=== PATIENT | female | born 1965 | race Caucasian/White ===

== ENCOUNTER → 2017-01-22 | Outpatient (CLI) | payer OTHER ==
[2014-08-06 13:52] VITALS: BP 102/67
--- NOTE | 2017-01-23 12:16 | NM ---
History: Hyperparathyroidism. Study: Nuclear medicine parathyroid scan. Comparison: None.. Technique: Immediate and delayed anterior and bilateral anterior oblique imaging of the neck was per formed after the intravenous administration of 25.3 mCi Tc 99m sestamibi. Findings: There is increased uptake along the inferior aspect of the right thyroid lobe on the immediate image that becomes more prominent on the delayed image most consistent with parathyroid adenoma. Impression: Findings compatible with a parathyroid adenoma on the right. Reported By:
== END | disposition home or self-care (01) ==
LOC: RAD 09:10
PROVIDERS: ATTEND Internal Medicine Endocrinology, Diabetes & Metabolism
DX: E21.2 Other hyperparathyroidism (principal)
CPT/HCPCS: 78070